=== PATIENT | female | born 1995 | race American Indian/Alaskan Native ===

== ENCOUNTER 2017-10-21 00:06 | Inpatient (IN) | payer OTHER ==
[~2017-10-21] VITALS: Ht 160 cm; Wt 65.0 kg
== END 2017-10-23 13:35 | disposition home or self-care (01) | DRG 775 ==
LOC: FBC 00:06 → FBCO 10-28 11:44 → EDSTATUS 10-28 12:08
PROVIDERS: ADMIT Obstetrics & Gynecology
PROC: 0KQM0ZZ Repair Perineum Muscle, Open Approach (ICD-10-PCS; principal; 2017-10-21)
PROC: 10907ZC Drainage of Amniotic Fluid, Therapeutic from Products of Conception, Via Natural or Artificial Opening (ICD-10-PCS; principal; 2017-10-21)
PROC: 3E0P3VZ Introduction of Hormone into Female Reproductive, Percutaneous Approach (ICD-10-PCS; principal; 2017-10-21)
PROC: 10E0XZZ Delivery of Products of Conception, External Approach (ICD-10-PCS; principal; 2017-10-21)
PROC: 3E0R3BZ Introduction of Anesthetic Agent into Spinal Canal, Percutaneous Approach (ICD-10-PCS; 2017-10-21)
PROC: 00HU33Z Insertion of Infusion Device into Spinal Canal, Percutaneous Approach (ICD-10-PCS; 2017-10-21)
DX: O99.324 Drug use complicating childbirth (principal); F12.90 Cannabis use, unspecified, uncomplicated; Z3A.39 39 weeks gestation of pregnancy; Z37.0 Single live birth; O70.1 Second degree perineal laceration during delivery
CPT/HCPCS: 01960; 36415; 82803; 85027; J2590; J7120

== ENCOUNTER 2023-01-06 21:34 | Emergency (ER) | payer OTHER ==
[~2023-01-06] VITALS: Ht 160 cm; Wt 64.4 kg
[2023-01-06] MEDS ORDERED: EFFEXOR XR150 MG PO (21:51)
[2023-01-06] MEDS ORDERED: HYDROCODON-ACE1 EA10 PO (23:26)
== END 2023-01-06 23:34 | disposition home or self-care (01) ==
LOC: ED 21:34
DX: O03.9 Complete or unspecified spontaneous abortion without complication (principal)
CPT/HCPCS: 36415; 76801; 76817; 84702; 85025; 86900; 86901; 96374; 96375; 99284-25; A9270; J1170; J2405